=== PATIENT | male | born 1960 | race Caucasian/White ===

== ENCOUNTER 2024-10-03 09:02 | Emergency (ER) | payer MEDICARE, SELFPAY ==
[2024-10-03 09:05] VITALS: BP 132/72; PULSE 82; TEMP 37.2; O2SAT 96; BMI 24.8
--- NOTE | 2024-10-03 09:17 | ED_ITS ---
HPI HPI - General Adult General Chief complaint: Nausea/Vomiting/Diarrhea Stated complaint: DIARRHEA POST PROCEDURE 09/22/24 Time Seen by Provider: 10/03/24 09:09 Source: patient Mode of arrival: walk-in Limitations: no limitations History of Present Illness HPI narrative: 64-year-old male presents to the emergency department for diarrhea. He has had it for 6 days. 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 The diarrhea has been numerous times per day and nonbloody. He talked to his surgeon who was concerned about C. difficile infection. He is accompanied by his daughter who is a nurse and gives much of the history. He has not been vomiting and has not had a fever. Related Data Home Medications ?Medication ?Instructions ?Recorded ?Confirmed enoxaparin 40 mg/0.4 mL 40 mg subcut Q24H 10/03/24 10/03/24 subcutaneous syringe Previous Rx's ?Medication ?Instructions ?Recorded vancomycin 250 mg capsule 500 mg (2 x 250 mg) PO QID 10 days 10/03/24 #80 caps Allergies Allergy/AdvReac Type Severity Reaction Status Date / Time No Known Drug Allergies Allergy Verified 10/03/24 09:13 Opioid HPI Opioid Management Most Recent Opioid Data: No Data to Display Review of Systems ROS Narrative A ten point review of systems is negative except as noted above. [facility] Medical History (Updated 10/03/24 @ 13:27 by Malik Dunlap MD) Mass of colon ?K63.89 - Other specified diseases of intestine (ICD-10) Social History Little interest or pleasure in doing things: not at all Feeling down, depressed, or hopeless: not at all Exam Narrative Exam Narrative: Nurses note and vital signs reviewed and patient is not hypoxic. General: The patient appears well and in no apparent distress. Patient is resting comfortably on cart. Skin: Warm, dry, no pallor noted. There is no rash noted. Head: Normocephalic, atraumatic Eye: Normal conjunctiva, no drainage Ears, Nose, Mouth, and Throat: oral mucosa is moist. Nares patent. Cardiovascular: Regular Rate and Rhythm Respiratory: Patient is in no distress, no accessory muscle use, lungs are clear to auscultation, no wheezing, rales or rhonchi Back: non-tender GI: Soft without tenderness. No distention. Surgical wounds are healing well. Musculoskeletal: The patient has no evidence of calf tenderness, no pitting edema, symmetrical pulses noted bilaterally Neurological: A&O, normal speech Psychiatric: Cooperative Constitutional Vital Signs, click to edit/add: Last Vital Signs Temp 98.9 F 10/03/24 09:05 Pulse 78 10/03/24 12:55 Resp 16 10/03/24 12:55 BP 124/79 10/03/24 12:55 Pulse Ox 97 10/03/24 12:55 O2 Del Method Room Air 10/03/24 09:36 Course Vital Signs Vital signs: Vital Signs Temperature 98.9 F 10/03/24 09:05 Pulse Rate 82 10/03/24 09:05 Respiratory Rate 16 10/03/24 09:05 Blood Pressure 132/72 10/03/24 09:05 Pulse Oximetry 96 10/03/24 09:05 Temperature 98.9 F 10/03/24 09:05 Pulse Rate 78 10/03/24 12:55 Respiratory Rate 16 10/03/24 12:55 Blood Pressure 124/79 10/03/24 12:55 Pulse Oximetry 97 10/03/24 12:55 Oxygen Delivery Method Room Air 10/03/24 09:36 Medical Decision Making MDM Narrative Medical decision making narrative: Blood work is nonspecific. C. difficile test is positive and he is prescribed vancomycin. Findings are discussed thoroughly with the patient and his daughter. Differential Diagnosis Differential Diagnosis: Viral gastroenteritis, C. difficile, dehydration Lab Data Lab results reviewed: Yes I reviewed the patient's lab results Labs: Lab Results 10/03/24 10/03/24 10/03/24 Range/Units 09:17 09:25 10:14 WBC 10.1 (4.0-11.0) 10^3/uL RBC 4.34 L (4.70-6.10) 10^6/uL Hgb 12.9 L (14.0-18.0) g/dL Hct 38.7 L (42.0-54.0) % MCV 89.2 (80.0-94.0) fL MCH 29.7 (25.9-34.0) pg MCHC 33.3 (29.9-35.2) g/dL RDW 13.1 (11.0-15.0) % Plt Count 326 (150-450) 10^3/uL MPV 9.2 L (9.5-13.5) fL Neut % (Auto) 72.1 (43.0-75.0) % Lymph % (Auto) 17.5 L (20.5-60.0) % [place] % (Auto) 8.3 (1.7-12.0) % Eos % (Auto) 1.4 (0.9-7.0) % Baso % (Auto) 0.3 (0.2-2.0) % Neut # (Auto) 7.3 H (1.4-6.5) 10^3/uL Lymph # (Auto) 1.8 (1.2-3.8) 10^3/uL [place] # (Auto) 0.8 (0.3-0.8) 10^3/uL Eos # (Auto) 0.1 (0.0-0.7) 10^3/uL Baso # (Auto) 0.0 (0.0-0.1) 10^3/uL Abs Immat Gran (auto) 0.04 H (0.00-0.03) 10^3/uL Imm/Tot Granulo (auto) 0.4 (0.0-0.5) % Sodium 140 (136-145) mmol/L Potassium 3.9 (3.5-5.1) mmol/L Chloride 105 (98-107) mmol/L Carbon Dioxide 28.8 (21.0-32.0) mmol/L Anion Gap 10.1 BUN 13.0 (7.0-18.0) mg/dL Creatinine 0.96 (0.70-1.30) mg/dL Est GFR ( Amer) >60 (>=60 mL/min/1.73m^2) Est GFR (Non-Af Amer) >60 (>=60 mL/min/1.73m^2) BUN/Creatinine Ratio 13.5 Glucose 100 (74-106) mg/dL Calcium 9.3 (8.5-10.1) mg/dL Urine Color Yellow (YELLOW) Urine Clarity Clear (CLEAR) Urine pH 6.0 (5.0-9.0) Ur Specific [place] 1.020 (1.005-1.025) Urine Protein Negative (NEG/TRACE) mg/dL Urine Glucose (UA) Negative (NEGATIVE) mg/dL Urine Ketones Negative (NEGATIVE) mg/dL Urine Occult Blood Negative (NEGATIVE) Urine Nitrite Negative (NEGATIVE) Urine Bilirubin Negative (NEGATIVE) Urine Urobilinogen 0.2 (0.2-1.0) EU/dL Ur Leukocyte Esterase Negative (NEGATIVE) Urine RBC None seen (0-2) #/HPF Urine WBC 0-2 A (NONE SEEN) #/HPF Ur Squamous Epith Cells Rare (NONE/RARE) #/LPF Urine Crystals None seen (None Seen) #/HPF Urine Bacteria None seen (NONE SEEN) #/HPF Urine Casts None seen (NONE SEEN) #/LPF Urine Mucus Trace A (NONE SEEN) C. difficile Toxin PCR Positive A* Discharge Plan Discharge Chief Complaint: Nausea/Vomiting/Diarrhea Clinical Impression: Clostridium difficile infection Patient Disposition: Home, Self-Care Time of Disposition Decision: 13:27 Condition: Good Mode of Transportation: Private Vehicle Prescriptions / Home Meds: New vancomycin 250 mg capsule 500 mg PO QID 10 Days Qty: 80 0RF No Action enoxaparin 40 mg/0.4 mL syringe 40 mg subcut Q24H Print Language: Bengali Instructions: C. Diff (Clostridioides Difficile) Infection (ED) Referrals: Anshul Medina DO [Primary Care Provider] - 1 week
[2024-10-03] MEDS: 0.9 % SODIUM CHLORIDE 500 ML IV (09:30)
[2024-10-03 09:36] VITALS: O2SAT 96
[2024-10-03 09:40] LABS: Basophils Percent Auto 0.3 % (0.2-2.0); Eosinophils Absolute Auto 0.1 10^3/uL (0.0-0.7); Eosinophils Percent Auto 1.4 % (0.9-7.0); Hematocrit 38.7 % (42.0-54.0); Hemoglobin 12.9 g/dL (14.0-18.0); Immature Granulocytes Abs Auto 0.04 10^3/uL (0.00-0.03); Immature Granulocytes Pct Auto 0.4 % (0.0-0.5); Lymphocytes Absolute Auto 1.8 10^3/uL (1.2-3.8); Lymphocytes Percent Auto 17.5 % (20.5-60.0); Mean Corpuscular HGB Conc 33.3 g/dL (29.9-35.2); Mean Corpuscular Hemoglobin 29.7 pg (25.9-34.0); Mean Corpuscular Volume 89.2 fL (80.0-94.0); Mean Platelet Volume 9.2 fL (9.5-13.5); Monocytes Absolute Auto 0.8 10^3/uL (0.3-0.8); Monocytes Percent Auto 8.3 % (1.7-12.0); Neutrophils Absolute Auto 7.3 10^3/uL (1.4-6.5); Neutrophils Percent Auto 72.1 % (43.0-75.0); Platelet Count 326 10^3/uL (150-450); Red Blood Count 4.34 10^6/uL (4.70-6.10); Red Cell Distribution Width 13.1 % (11.0-15.0); White Blood Count 10.1 10^3/uL (4.0-11.0)
[2024-10-03 09:41] LABS: Bilirubin Urine NEGATIVE (NEGATIVE); Blood Urine NEGATIVE (NEGATIVE); Clarity Urine CLEAR (CLEAR); Color Urine YELLOW (YELLOW); Glucose Urine UA NEGATIVE (NEGATIVE); Ketones Urine NEGATIVE (NEGATIVE); Leukocyte Esterase Urine NEGATIVE (NEGATIVE); Nitrite Urine NEGATIVE (NEGATIVE); Protein Urine NEGATIVE (NEG/TRACE); Urobilinogen Urine 0.2 EU/dL (0.2-1.0)
[2024-10-03 09:57] LABS: Anion Gap 10.1; BUN Creatinine Ratio 13.5; Calcium 9.3 mg/dL (8.5-10.1); Carbon Dioxide 28.8 mmol/L (21.0-32.0); Chloride 105 mmol/L (98-107); Estimated GFR (African America >60 (>=60 mL/min/1.73m^2); Estimated GFR (Non-African Ame >60 (>=60 mL/min/1.73m^2); Glucose 100 mg/dL (74-106); Potassium 3.9 mmol/L (3.5-5.1); Sodium 140 mmol/L (136-145)
[2024-10-03] MEDS: 0.9 % SODIUM CHLORIDE 1,000 ML 200 ML IV (10:04)
[2024-10-03 10:09] LABS: Bacteria Urine NONE SEEN #/HPF (NONE SEEN); Cast Seen? NONE SEEN #/LPF (NONE SEEN); Crystals Seen? None Seen #/HPF (None Seen); Mucus Urine TRACE (NONE SEEN); RBC Urine NONE SEEN #/HPF (0-2); Squamous Epithelial Cell Urine RARE #/LPF (NONE/RARE); WBC Urine 0-2 #/HPF (NONE SEEN)
[2024-10-03 10:43] VITALS: BP 134/89; PULSE 79; O2SAT 97
[2024-10-03 12:55] VITALS: BP 124/79; PULSE 78; O2SAT 97
[2024-10-03 13:19] LABS: C. Difficile PCR POSITIVE
[2024-10-03 13:44] VITALS: BP 139/91; PULSE 78; O2SAT 99
== END 2024-10-03 13:46 | disposition home or self-care (01) ==
PROVIDERS: Emergency Provider Emergency Medicine; PCP Internal Medicine
DX: A04.72 Enterocolitis due to Clostridium difficile, not specified as recurrent (principal); R19.7 Diarrhea, unspecified
CPT/HCPCS: 36415; 80048; 81001; 85025; 87045; 87046; 87427; 87493; 96360; 96361; 99284

== ENCOUNTER 2024-10-20 08:01 | Outpatient (REF) | payer MEDICARE, SELFPAY ==
[2024-10-20 14:56] LABS: C. Difficile PCR POSITIVE
== END 2024-10-20 08:02 | disposition home or self-care (01) ==
LOC: LAB 08:01
PROVIDERS: PCP Internal Medicine; Visit Provider Internal Medicine
DX: R19.7 Diarrhea, unspecified (principal)
CPT/HCPCS: 87493